=== PATIENT | female | born 1990 | race African-American/Black ===

== ENCOUNTER 2016-03-03 12:09 | Emergency (ER) | payer OTHER ==
[~2016-03-03] VITALS: Ht 154.9 cm; Wt 76.7 kg
[~2016-03-03 12:09] MED LIST: AMOXICILLIN 50500 M1; AMOXICILLIN 50500 MG PO; DIFLUCAN150 MG PO; HYDROCODONE-AP1 EAC6 PO; NOHOMEMEDICATIONS; NORCO 5-325 TA1 EACH PO; PENICILLIN V P500 MG PO; PENICILLIN VK500 MG PO; POLYMYXIN B/TMP10 ML OP; PRENATAL
[2016-05-04] MEDS ORDERED: ROBAXIN 750 MG750 M1 PO (21:59)
[2016-05-04] MEDS ORDERED: HYDROCODONE-AP1 EAC6 PO (23:01)
== END 2016-03-03 13:04 | disposition home or self-care (01) ==
LOC: ER 12:09
DX: Z53.21 Procedure and treatment not carried out due to patient leaving prior to being seen by health care provider (principal)

== ENCOUNTER 2016-06-14 13:28 | Emergency (ER) | payer OTHER ==
[~2016-06-14] VITALS: Ht 154.9 cm; Wt 79.8 kg
[~2016-06-14 13:28] MED LIST changes: +ROBAXIN 750 MG750 M1 PO
[2016-06-14] MEDS ORDERED: ROBAXIN 750 MG750 M1 PO ×2 (13:34→13:40)
[2016-06-14] MEDS ORDERED: PREDNISONE 20 M20 MG PO (13:40)
[2016-06-14 14:20] VITALS: BP 118/65
== END 2016-06-14 14:20 | disposition home or self-care (01) ==
LOC: ER 13:28
DX: M54.41 Lumbago with sciatica, right side (principal); J30.2 Other seasonal allergic rhinitis; Z88.6 Allergy status to analgesic agent; Z87.891 Personal history of nicotine dependence

== ENCOUNTER 2016-07-17 23:13 | Emergency (ER) | payer OTHER ==
[~2016-07-17] VITALS: Ht 154.9 cm; Wt 78.0 kg
[~2016-07-17 23:13] MED LIST changes: +PREDNISONE 20 M20 MG PO
[2016-07-17 23:17] VITALS: BP 133/90
[2016-07-17] MEDS ORDERED: FLEXERIL PO (23:57)
[2016-07-17] MEDS ORDERED: ZANAFLEX4 M2 PO (23:58)
== END 2016-07-18 00:06 | disposition home or self-care (01) ==
LOC: ER 23:13
DX: M25.512 Pain in left shoulder (principal); G89.29 Other chronic pain; M54.6 Pain in thoracic spine; J30.2 Other seasonal allergic rhinitis; Z88.6 Allergy status to analgesic agent; Z87.891 Personal history of nicotine dependence

== ENCOUNTER 2016-07-26 22:30 | Emergency (ER) | payer OTHER ==
[~2016-07-26] VITALS: Ht 154.9 cm; Wt 78.5 kg
[~2016-07-26 22:30] MED LIST changes: +FLEXERIL PO; +ZANAFLEX4 M2 PO
[2016-07-26] MEDS ORDERED: PENICILLIN VK500 M1 PO (22:35)
[2016-07-26] MEDS ORDERED: NOHOMEMEDICATIONS (22:36)
[2016-07-26] MEDS ORDERED: NORCO 5-325 TA1 EACH PO (22:53)
[2016-07-26 23:00] VITALS: BP 124/76
== END 2016-07-26 22:35 | disposition home or self-care (01) ==
LOC: ER 22:30
DX: K08.89 Other specified disorders of teeth and supporting structures (principal); F10.99 Alcohol use, unspecified with unspecified alcohol-induced disorder; Z88.6 Allergy status to analgesic agent; Z87.891 Personal history of nicotine dependence

== ENCOUNTER 2016-09-07 03:23 | Emergency (ER) | payer OTHER ==
[~2016-09-07] VITALS: Ht 154.9 cm; Wt 73.9 kg
[~2016-09-07 03:23] MED LIST changes: +PENICILLIN VK500 M1 PO
[2016-09-07] MEDS ORDERED: ACETAMINOPHEN-1 EAC1 PO (03:58)
[2016-09-07] MEDS ORDERED: NAPROSYN500 MG PO (03:58)
[2016-09-07] MEDS ORDERED: ROBAXIN500 MG PO (03:58)
[2016-09-07 04:49] VITALS: BP 122/64
== END 2016-09-07 04:50 | disposition home or self-care (01) ==
LOC: ER 03:23
DX: S30.0XXA Contusion of lower back and pelvis, initial encounter (principal); F10.99 Alcohol use, unspecified with unspecified alcohol-induced disorder; Z88.6 Allergy status to analgesic agent; Z87.891 Personal history of nicotine dependence; V49.50XA Passenger injured in collision with unspecified motor vehicles in traffic accident, initial encounter; Y93.89 Activity, other specified; Y92.89 Other specified places as the place of occurrence of the external cause; Y99.8 Other external cause status

== ENCOUNTER 2016-10-19 13:50 | Emergency (ER) | payer OTHER ==
[~2016-10-19] VITALS: Ht 154.9 cm; Wt 72.6 kg
[~2016-10-19 13:50] MED LIST changes: +ACETAMINOPHEN-1 EAC1 PO; +NAPROSYN500 MG PO; +ROBAXIN500 MG PO
[2016-10-19 13:59] VITALS: BP 121/70
[2016-10-19] MEDS ORDERED: HYDROCODONE-AP1 EAC6 PO (14:52)
== END 2016-10-19 15:21 | disposition home or self-care (01) ==
LOC: ER 13:50
DX: O26.899 Other specified pregnancy related conditions, unspecified trimester (principal); M27.3 Alveolitis of jaws; Z88.6 Allergy status to analgesic agent; Z87.891 Personal history of nicotine dependence; Z3A.00 Weeks of gestation of pregnancy not specified

== ENCOUNTER 2016-11-19 12:03 | Emergency (ER) | payer OTHER ==
[~2016-11-19] VITALS: Ht 167.6 cm; Wt 59.0 kg
[2016-11-19] MEDS ORDERED: NAPROSYN500 MG PO (13:24)
[2016-11-19] MEDS ORDERED: ULTRAM 50MG TAB50 MG PO (13:24)
[2016-11-19 13:42] VITALS: BP 115/65
== END 2016-11-19 13:30 | disposition home or self-care (01) ==
LOC: ER 12:03
DX: K08.89 Other specified disorders of teeth and supporting structures (principal); Z87.891 Personal history of nicotine dependence; Z88.6 Allergy status to analgesic agent

== ENCOUNTER 2016-12-03 22:39 | Emergency (ER) | payer OTHER ==
[~2016-12-03] VITALS: Ht 154.9 cm; Wt 82.1 kg
[~2016-12-03 22:39] MED LIST changes: +ULTRAM 50MG TAB50 MG PO
[2016-12-03] MEDS ORDERED: UNICOMPLEX M TA1 TA1 PO (22:57)
[2016-12-04] MEDS ORDERED: NORCO 5-325 TA1 EACH PO (00:40)
[2016-12-04] MEDS ORDERED: PENICILLIN VK500 M1 PO (00:40)
[2016-12-04 00:52] VITALS: BP 132/76
== END 2016-12-04 00:53 | disposition home or self-care (01) ==
LOC: ER 22:39
DX: S02.5XXA Fracture of tooth (traumatic), initial encounter for closed fracture (principal); K02.9 Dental caries, unspecified; Z88.6 Allergy status to analgesic agent; Z87.891 Personal history of nicotine dependence; X58.XXXA Exposure to other specified factors, initial encounter; Y93.89 Activity, other specified; Y92.89 Other specified places as the place of occurrence of the external cause; Y99.8 Other external cause status

== ENCOUNTER 2017-03-12 14:57 | Emergency (ER) | payer OTHER ==
[~2017-03-12] VITALS: Ht 157.5 cm; Wt 78.0 kg
[~2017-03-12 14:57] MED LIST changes: +UNICOMPLEX M TA1 TA1 PO
== END 2017-03-12 19:00 | disposition home or self-care (01) ==
LOC: ER 14:57
DX: Z76.0 Encounter for issue of repeat prescription (principal); M25.562 Pain in left knee; Z88.5 Allergy status to narcotic agent; Z88.6 Allergy status to analgesic agent; Z87.891 Personal history of nicotine dependence